=== PATIENT | male | born 1950 | race Caucasian/White ===

== ENCOUNTER → 2021-05-26 11:46 | Outpatient (CLI) | payer MEDICARE, SELFPAY ==
--- NOTE | ~2021-05-26 | CT_ITS ---
EXAMINATION: CT sinus wo con DATE: 05/26/2021 11:59 INDICATION: Chronic sinusitis. TECHNIQUE: Computed tomography (CT) of the paranasal sinuses was performed without intravenous contra st. Iterative reconstruction technique was employed. The dose-length product was 292.39 mGy-cm. COMPARISON: None FINDINGS: There is mild mucosal thickening in the frontal and ethmoid sinuses. The sphenoid sinuses a re clear. There is mild mucosal thickening in the maxillary sinuses. There is leftward deviation of s uperior nasal septum and rightward deviation of the inferior nasal septum. The ostiomeatal units are patent. IMPRESSION: 1. Mild mucosal thickening in the paranasal sinuses. 2. Leftward deviation of superior nasal septum and rightward deviation of the inferior nasal septum. Reviewed, dictated and finalized at location E. N RECEIVER IMPRESSION: 1. Mild mucosal thickening in the paranasal sinuses. 2. Leftward deviation of superior nasal septum and rightward deviation of the i nferior nasal septum.
== END ==
PROVIDERS: PCP Internal Medicine; Visit Provider Otolaryngology
DX: J32.0 Chronic maxillary sinusitis (principal)
CPT/HCPCS: 70486

== ENCOUNTER 2024-06-11 01:03 | Day surgery (SDC) | payer OTHER, SELFPAY ==
[2024-05-28 09:06] VITALS: BMI 21.2
--- OUTSIDE RECORDS SUMMARY | 2024-06-11 01:06 | XMS_ITS | Patient Health Summary ---
Author Organization [facility] Address [address] [place] [address] Care Team Providers Care Company Marker Name Role Phone Todd Reyna DO Primary Care Provider [phone] Note from [facility],non-owned Affiliates and Associated Physician Practices is amultiple site organization consisting of ambulatory clinics and hospital sitesin [place], [place], [place] and [place]. This disclosure is being madepursuant to the Care Everywhere program and may not contain all information available regarding this patient. Last updated 18.[facility] Active Problems Problem Noted Date Diagnosed Date Basal cell carcinoma of skin of other parts of f carolyn 03/17/2014 Social History Tobacco Use Types Packs/Day Years Used Date Smoking Tobacco: Never Smokeless Tobacco: Never Alcohol Use Standard Drinks/Week Comments Yes 0 (1 standard drink = 0.6 oz pur e alcohol) Sex and Gender Information Value Date Recorded Sex Assigned at Male 04/04/2022 9:50 AM SITE SUPERINTENDENT Gender Identity Male 04/04/2022 9:50 AM SITE SUPERINTENDENT Sexual Orientation Straight 04/04/2022 9: 50 AM SITE SUPERINTENDENT Last Filed Vital Signs Vital Sign Reading Time Taken Comments Blood Pressure 140/80 10/14/2014 10:04 AM CDT Pulse 43 10/14/2014 10:04 AM CDT Temperature - - Respiratory Rate - - Oxygen Saturation 98% 10/14/2014 10:04 AM CDT Inhaled Oxygen Concentration - - Weight 69.9 kg (154 lb) 10/14/2014 7:30 AM CDT Height 172.7 cm (5' 8 ) 10/14/2014 7:30 AM CDT Body Mass Index 23.42 10/14/2014 7:30 AM CDT Procedures * DERMATOPATHOLOGY(Performed 05/29/2019) * DERMATOPATHOLOGY(Performed 03/07/2017) * DERMATOPATHOLOGY(Performed 02/08/2017) * DERMATOPATHOLOGY(Performed 08/20/2014) * DERMATOPATHOLOGY(Performed 02/18/2014) Results * DERMATOPATHOLOGY (05/29/2019 12:00 AM SITE SUPERINTENDENT) Only the most recent of5 resultswithin the time period is included. Case Report Dermatopathology Report Case: [id number] Authorizing Provider: Noemi Ramires MD Collected: 05/29/2019 12:00 AM Ordering Location: [facility] Lab Received: 05/30/2019 10:31 AM Pathologist: Tab Hutchins MD Specimen: Skin, left FH 0 5:07 PM [facility] [place] DERMATOPATHOLOGY LABORATORY Final Diagnosis Specimen A. SKIN, left FH: BENIGN VERRUCOUS KERATOSIS, INFLAMED (L82.1) 0 5:07 PM [facility] [place] DERMATOPATHOLOGY LABORATORY Clinical History R/O SK vs other; irritated, non-healing. 0 5:07 PM [facility] [place] DERMATOPATHOLOGY LABORATORY Gross Description Specimen A: Received is one formalin filled container labeled with the patient's name and designated left FH. The specimen consists of a shave (4 pieces) measuring 1a3y0zo, 6n2n6mu, 1t3c8os, & 8b5p4lh. Jar 0. 0 5:07 PM [facility] [place] DERMATOPATHOLOGY LABORATORY Microscopic Description Specimen A. SKIN, left FH: Sections show hyperkeratosis, papillomatosis, hypergranulosis, and acanthosis. Inflammatory cells are present within the dermis. These histological findings can be seen in a verruca vulgaris or a seborrheic keratosis. 0 5:07 PM [facility] [place] DERMATOPATHOLOGY LABORATORY Disclaimer An external and internal positive and negative controls are appropriate for the histochemical, immunohistochemical and immunofluorescence stain(s) in this case (if any), except where stated explicitly. The performance characteristics of the stain(s) cited in this report were developed and its performance characteristic determined by the Dermatopathology Laboratory at [facility], directed by Dr. Lan Hutchins. These tests need not be, and therefore are not, approved by the [place] Food and Drug Administration. The tests are used for clinical purposes. Billing Codes Specimen Charges Stain Charges 26167 1 0 5:07 PM SITE SUPERINTENDENT DERMATOPATHOLOGY LABORATORY Embedded Images 0 5:07 PM SITE SUPERINTENDENT DERMATOPATHOLOGY LABORATORY Pathology/Cytolog y TISSUE SPECIMEN FROM SKIN / Unknown 05/29/2019 05/30/2019 10:31 AM SITE SUPERINTENDENT Noemi Ramires MD LAB - PATHOLOGY/CYT OLOGY ORDERABLES DERMATOPATHOLOGY LABORATORY [facility] - Department of Dermatology [address] [place] [address], 5th Floor Lab [address] [phone] Care Teams Company Marker Relationship Specialty Start Date End Date Todd Reyna DO [address] [facility] [address] [address] PCP - General 02/27/14
--- OUTSIDE RECORDS SUMMARY | 2024-06-11 01:06 | XMS_ITS | Encounter Summary ---
Author Organization [facility] Address [address] [place] [address] Care Team Providers Care Refrigeration Person Name Role Phone AxelTodd Sharda DO Primary Care Provider Encounter Details Date Type Department Care Team (Late st Contact Info) Description 05/30/2019 Lab Requisition [facility] Derm[facility] Lab [address] [place] [id number] Noemi Ramires MD [address] [facility] [address] [place] [address] Social History Tobacco Use Types Packs/Day Years Used Date Smoking Tobacco: Never Smokeless Tobacco: Never Alcohol Use Standard Drinks/Week Comments Yes 0 (1 standard drink = 0.6 oz pur e alcohol) Sex and Gender Information Value Date Recorded Sex Assigned at Male 04/04/2022 9:50 AM MARBLE HELPER Gender Identity Male 04/04/2022 9:50 AM MARBLE HELPER Sexual Orientation Straight 04/04/2022 9: 50 AM MARBLE HELPER documented as of this encounter Plan of Treatment Not on file documented as of this encounter Procedures Procedure Name Priority Date/Time Associated Diagnosis Comments DERMATOPATHOLOGY Routine 05/29/2019 12:0 0 AM MARBLE HELPER documented in this encounter Results * DERMATOPATHOLOGY (05/29/2019 12:00 AM MARBLE HELPER) Case Report Dermatopathology Report Case: [id number] Authorizing Provider: Noemi Ramires MD Collected: 05/29/2019 12:00 AM Ordering Location: [facility] Received: 05/30/2019 10:31 AM Pathologist: Tab Hutchins MD Specimen: Skin, left FH 0 5:07 PM [facility] DERMATOPATHOLOGY LABORATORY Final Diagnosis Specimen A. SKIN, left FH: BENIGN VERRUCOUS KERATOSIS, INFLAMED (L82.1) 0 5:07 PM [facility] DERMATOPATHOLOGY LABORATORY Clinical History R/O SK vs other; irritated, non-healing. 0 5:07 PM MARBLE HELPER DERMATOPATHOLOGY LABORATORY Gross Description Specimen A: Received is one formalin filled container labeled with the patient's name and designated left FH. The specimen consists of a shave (4 pieces) measuring 0t4g8wx, 1c7p9ms, 8v2z2uu, & 0k6x7xj. Jar 0. 0 5:07 PM MARBLE HELPER DERMATOPATHOLOGY LABORATORY Microscopic Description Specimen A. SKIN, left FH: Sections show hyperkeratosis, papillomatosis, hypergranulosis, and acanthosis. Inflammatory cells are present within the dermis. These histological findings can be seen in a verruca vulgaris or a seborrheic keratosis. 0 5:07 PM [facility] DERMATOPATHOLOGY LABORATORY Disclaimer An external and internal positive and negative controls are appropriate for the histochemical, immunohistochemical and immunofluorescence stain(s) in this case (if any), except where stated explicitly. The performance characteristics of the stain(s) cited in this report were developed and its performance characteristic determined by the Dermatopathology Laboratory at [facility], directed by Dr. Lan Hutchins. These tests need not be, and therefore are not, approved by the [place] Food and Drug Administration. The tests are used for clinical purposes. Billing Codes Specimen Charges Stain Charges 23818 1 0 5:07 PM MARBLE HELPER DERMATOPATHOLOGY LABORATORY Embedded Images 0 5:07 PM [facility] DERMATOPATHOLOGY LABORATORY Pathology/Cytolog y TISSUE SPECIMEN FROM SKIN / Unknown 05/29/2019 05/30/2019 10:31 AM MARBLE HELPER Noemi Ramires MD LAB - PATHOLOGY/CYT OLOGY ORDERABLES DERMATOPATHOLOGY LABORATORY [facility] - Department of Dermatology [address] 5th [place] [address], [facility] [phone] documented in this encounter Visit Diagnoses Not on filedocumented in this encounter Care Teams Refrigeration Person Relationship Specialty Start Date End Date Todd Reyna DO [address] [facility] [address] [place] [address] PCP - General 02/27/14 documented as of this encounter
--- OUTSIDE RECORDS SUMMARY | 2024-06-11 01:06 | XMS_ITS | Clinical Summary ---
Author Organization [facility] Address [address] [place] [address] Care Team Providers Care Tram Inspector Name Role Phone AxelChanduToddgurpreet Robin DO Primary Care Provider [phone] Source Comments [facility],non-owned Affiliates and Associated Physician Practices is amultiple site organization consisting of ambulatory clinics and hospital sitesin [place], [place], [place] and [place]. This disclosure is being madepursuant to the Care Everywhere program and may not contain all information available regarding this patient. Last updated 18.[facility] [employer] Active Problems Problem Noted Date Diagnosed Date Basal cell carcinoma of skin of other parts of f carolyn 03/17/2014 Family History Medical History Relation Name Comments Heart Failure Mother Relation Name Status Comments Mother Social History Tobacco Use Types Packs/Day Years Used Date Smoking Tobacco: Never Smokeless Tobacco: Never Alcohol Use Standard Drinks/Week Comments Yes 0 (1 standard drink = 0.6 oz pur e alcohol) Sex and Gender Information Value Date Recorded Sex Assigned at Male 04/04/2022 9:50 AM SWATCH PASTER Gender Identity Male 04/04/2022 9:50 AM SWATCH PASTER Sexual Orientation Straight 04/04/2022 9: 50 AM SWATCH PASTER Last Filed Vital Signs Vital Sign Reading [...] Mass Index 23.42 10/14/2014 7:30 AM CDT Plan of Treatment Health Maintenance Due Date Last Done Comments COLOGUARD (AGES 45-75) - COL ON CA SCREENING 1949 COLON MONITORING 1949 COLONOSCOPY - COLON CA SCREENING 1949 CT COLONOGRAPHY - COLON CA SCREENING 1949 Colorectal Cancer Screening 1949 FIT - COLON CA SCREENING 1949 FLEX SIG - COLON CA SCREENING 1949 LIPID TESTING 1949 MEDICARE AWV 12 MONTHS 1949 HEPATITIS C SCREENING 05/04/1967 DTAP/TDAP/TD VACCINES (1 - Tdap) 1968 PNEUMOCOCCAL VACCINE 50+ (1 of 1 - PCV) 1999 ZOSTER VACCINE (1 of 2) 1999 COVID-19 VACCINE (1 - 2023-2 5 season) 2023 INFLUENZA VACCINE (#1) 2023 DEPRESSION SCREENING 04/24/2024 Respiratory Syncytial Virus (RSV) Vaccine Pt: or over 60 yrs (1 - 1-dose 75+ series) 2024 HEPATITIS B VACCINE Aged Out No longe r eligible based on patient's age to complete this topic HIB VACCINE Aged Out No longer eligi ble based on patient's age to complete this topic HPV VACCINE Aged Out No longer eligi ble based on patient's age to complete this topic MENINGOCOCCAL (Group B) VACCINE Aged Out No longer eligible based on patient's age to complete this topic MENINGOCOCCAL VACCINE Aged Out No scar salud eligible based on patient's age to complete this topic Care Teams Tram Inspector Relationship Specialty Start Date End Date Todd Reyna DO [address] [place] [address] PCP - General 02/27/14
--- OUTSIDE RECORDS SUMMARY | 2024-06-11 01:06 | XMS_ITS | Referral Summary ---
Author Organization [facility] Address [address] [place] [address] Care Team Providers Care Financial Services Auditor Name Role Phone Todd Reyna DO Primary Care Provider [phone] Source Comments [facility],non-owned Affiliates and Associated Physician Practices is amultiple site organization consisting of ambulatory clinics and hospital sitesin [place], [place], [place] and [place]. This disclosure is being madepursuant to the Care Everywhere program and may not contain all information available regarding this patient. Last updated 18.[facility] [employer] Active Problems Problem Noted Date Diagnosed Date [...] Sex Assigned at Male 04/04/2022 9:50 AM BRAZING MACHINE OPERATOR AUTOMATIC Gender Identity Male 04/04/2022 9:50 AM BRAZING MACHINE OPERATOR AUTOMATIC Sexual Orientation Straight 04/04/2022 9: 50 AM BRAZING MACHINE OPERATOR AUTOMATIC Last Filed Vital Signs Vital Sign Reading [...] 10/14/2014 7:30 AM CDT Plan of Treatment Not on file Care Teams Financial Services Auditor Relationship Specialty Start Date End Date Todd Reyna DO [address] [facility] [address] [address] PCP - General 02/27/14
[2024-06-11 08:00] VITALS: BP 145/84; PULSE 59; RESP 16; TEMP 36.1; O2SAT 100; BMI 21.1
[2024-06-11] MEDS: LACTATED RINGERS 1,000 ML 150 ML IV CONT (08:11)
--- NOTE | 2024-06-11 08:12 | P.PNAN_ITS ---
Anes - Initial Pre Proc Eval Procedure: Operation Date: 06/11/24 09:00 Proposed Procedures p Colonoscopy - Rocky Ceja MD Date/Time: 06/11/24 08:12 Surgeon: Rocky Ceja MD Pre Op Diagnosis: Personal hx of colon polyps. Patient Data Age: 74 Gender: M Height: 1.7 m Weight: 61.2 kg Last Vital Signs Temp 36.1 C L 06/11/24 08:00 Pulse 59 L 06/11/24 08:00 Resp 16 06/11/24 08:00 BP 145/84 H 06/11/24 08:00 Pulse Ox 100 06/11/24 08:00 O2 Del Method Room Air 06/11/24 08:00 Allergies Allergy/AdvReac Type Severity Reaction Status Date / Time amoxicillin Allergy Unknown Unknown Verified 06/11/24 07:58 PCN AdvReac Intermediate HIVES/RASH Uncoded 06/11/24 07:58 Home Medications ?Medication ?Instructions ?Recorded ?Confirmed ?Type ascorbic acid (vitamin C) 100 mg 100 mg PO DAILY 01/07/20 06/11/24 History tablet (Vitamin C) cholecalciferol (vitamin D3) 10 10 mcg PO DAILY 01/07/20 06/11/24 History mcg (400 unit) capsule multivitamin (Daily Multi-Vitamin 1 tablet PO DAILY 01/07/20 06/11/24 History tablet) vitamin B complex 1 tablet PO DAILY 01/07/20 06/11/24 History omega 6-bno-mmp-fish oil 60 mg-90 1 cap PO DAILY 12/03/20 06/11/24 History mg-500 mg capsule vit C,E,zinc,copper-sdvue4n 250 1 cap PO DAILY 12/03/20 06/11/24 History mg-lutein 5 mg-zeaxanthin 1 mg capsule (Ocuvite Adult 50 Plus) losartan 50 mg tablet 50 mg PO DAILY #90 tabs 02/19/24 06/11/24 Rx Patient hx anesthesia problems: none Family hx anesthesia problems: none Results Review: All pre-operative results and documents have been reviewed as part of the pre- operative evaluation. [facility] Past Medical History Medical History (Updated 02/21/24 @ 11:40 by Jenna Joe [facility]) BMI 21.0-21.9, adult Hypertension Urticaria Cervicalgia Hx of colonic polyps Hearing loss Family History Family History (Updated 02/21/24 @ 11:41 by NANCY Rees) Mother Family history of malignant neoplasm, Onset Age: 76 Depression Heart disease Father Family history of Alzheimer's disease Malignant neoplasm of prostate, Onset Age: 81 Sibling No problems noted. Social History Social History (Updated 02/21/24 @ 11:42 by NANCY Rees) Smoking status: Never smoker Second hand tobacco smoke exposure: No Alcohol intake: current Substance use: never Substance use type: does not use Do You Feel Safe in your Home?: Yes Lack of Transportation: No Lack of Food: Never True Current Housing: I Have Housing Concerned About Future Housing: No Difficulty Paying Gas/Electric Bills: No Difficulty Paying for Meds: No Currently Unemployed: No Education: Bachelor's Degree Difficulty w/ Childcare or Family Care: No Living arrangements: with family Occupation/Education: retired 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 Informed Consent: The patient's anesthetic plan and its attendant risks and benefits were discussed with the patient/family/POA. Questions were solicited and answers provided to the satisfaction of the patient/family/POA.
--- NOTE | 2024-06-11 08:49 | P.HP_ITS ---
History of Present Illness History of Present Illness Consent: Risks, benefits, and alternatives have been discussed and questions answered. Patient agrees to proceed with procedure. Chief complaint: Personal hx of colon polyps. Narrative: Alok Villalpando is a 74 year old male here for screening colonoscopy, last one 2016 Review of Systems Review of Systems: All systems reviewed & are unremarkable except as noted in HPI and below PMFSH Past Medical History Medical History (Updated 06/11/24 @ 08:52 by Rocky Ceja MD) Colon cancer screening BMI 21.0-21.9, adult Hypertension Urticaria Cervicalgia Hx of colonic polyps Hearing loss Family History Family History (Updated 02/21/24 @ 11:41 by NANCY Rees) Mother Family history of malignant neoplasm, Onset Age: 76 Depression Heart disease Father Family history of Alzheimer's disease Malignant neoplasm of prostate, Onset Age: 81 Sibling No problems noted. 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 Gender identity (if verbalized by the patient): Male Meds Home Medications and Allergies Home Medications ?Medication ?Instructions ?Recorded ?Confirmed ?Type ascorbic acid (vitamin C) 100 mg 100 mg PO DAILY 01/07/20 06/11/24 History tablet (Vitamin C) cholecalciferol (vitamin D3) 10 10 mcg PO DAILY 01/07/20 06/11/24 History mcg (400 unit) capsule multivitamin (Daily Multi-Vitamin 1 tablet PO DAILY 01/07/20 06/11/24 History tablet) vitamin B complex 1 tablet PO DAILY 01/07/20 06/11/24 History omega 6-urp-ygw-fish oil 60 mg-90 1 cap PO DAILY 12/03/20 06/11/24 History mg-500 mg capsule vit C,E,zinc,copper-sdsxj4a 250 1 cap PO DAILY 12/03/20 06/11/24 History mg-lutein 5 mg-zeaxanthin 1 mg capsule (Ocuvite Adult 50 Plus) losartan 50 mg tablet 50 mg PO DAILY #90 tabs 02/19/24 06/11/24 Rx Allergies Allergy/AdvReac Type Severity Reaction Status Date / Time amoxicillin Allergy Unknown Unknown Verified 06/11/24 07:58 PCN AdvReac Intermediate HIVES/RASH Uncoded 06/11/24 07:58 Vital Signs Vital Signs - 24 hr 06/11/24 08:00 Temperature 97.0 F L Pulse Rate 59 L Respiratory Rate 16 Blood Pressure 145/84 H Pulse Oximetry 100 Oxygen Delivery Room Air Exam Const: General: comfortable and no acute distress HENMT: Face/Nose/Sinus: Normal nares present Eyes: General: appearance normal, both eyes and all related structures Neck: Neck: no JVD Resp: Auscultation: clear to auscultation bilaterally Cardio: Rate: regular rate Rhythm: regular rhythm GI: Inspection: non-distended GI Palp: Yes Soft to palpation Skin: General skin exam: normal color Neuro: General: gait normal Speech: normal speech Extrem: General: normal to inspection Psych: Mental Status: mental status grossly normal Assessment and Plan Assessment and plan (1) Colon cancer screening: Code(s): Z12.11 - Encounter for screening for malignant neoplasm of colon Status: Acute Assessment and Plan: colonoscopy
[2024-06-11 09:08] VITALS: BP 95/59; PULSE 54; RESP 18; O2SAT 98
[2024-06-11 09:18] VITALS: BP 109/69; PULSE 54; RESP 18; O2SAT 100
[2024-06-11 09:28] VITALS: BP 110/69; PULSE 52; RESP 18; O2SAT 100
== END 2024-06-11 09:46 | disposition home or self-care (01) ==
PROVIDERS: PCP Internal Medicine; Visit Provider Internal Medicine Gastroenterology
PROC: 0DJD8ZZ Inspection of Lower Intestinal Tract, Via Natural or Artificial Opening Endoscopic (ICD-10-PCS; CPT 45378; principal; 2024-06-11 09:00)
DX: Z12.11 Encounter for screening for malignant neoplasm of colon (principal); I10 Essential (primary) hypertension; Z86.0100 Personal history of colon polyps, unspecified; Z80.42 Family history of malignant neoplasm of prostate; Z82.49 Family history of ischemic heart disease and other diseases of the circulatory system
CPT/HCPCS: G0105; J2003; J2704; J7120

== ENCOUNTER 2025-03-13 10:41 | Outpatient (CLI) | payer OTHER, SELFPAY ==
--- NOTE | ~2025-03-13 | CT_ITS ---
EXAM/PROCEDURE: CT sinus wo con HISTORY: J32.9 - Chronic sinusitis, unspecified COMPARISON: 05/26/2021 TECHNIQUE: Paranasal sinus CT performed FINDINGS: Minimal mucosal thickening in the ethmoid air cells; the paranasal sinuses otherwise are fully aerated. No air-fluid level. Ostiomeatal complexes are patent. Mild leftward deviation of the superior septum and more significant rightward deviation of the inferior septum unchanged. No gross acute or aggressive bony or soft tissue process about the sinuses seen. IMPRESSION: Unchanged appearance from the January 2022 exam with minimal disease present. No air-fluid level to indicate acute sinusitis. Reviewed, dictated and finalized at location A. ARCHITECT IMPRESSION: Unchanged appearance from the January 2022 exam with minimal disease present. N o air-fluid level to indicate acute sinusitis.
== END 2025-03-13 10:42 | disposition home or self-care (01) ==
PROVIDERS: PCP Internal Medicine; Visit Provider Otolaryngology
DX: J32.9 Chronic sinusitis, unspecified (principal)
CPT/HCPCS: 70486